=== PATIENT | female | born 1970 | race Caucasian/White ===

== ENCOUNTER 2016-12-16 22:01 | Inpatient (IN) | payer MEDICARE, OTHER ==
--- NOTE | ~2016-12-16 | PN ---
Unit #: [id number] #: [id number] Patient: ALYSHA BONDS [id number] [facility] [address] [place] [address] [id number] MR#: [id number] NAME: ALYSHA BONDS ROOM: P251 Age: 46 Sex: F Admission Date: 12/16/2016 : 1970 Attending Physician: Timoteo Morgan M.D. Admitting Physician: Timoteo Morgan M.D. Primary Care Physician: Generic Doctor Not In System [facility] PROGRESS NOTES DATE OF SERVICE: 12/23/2016 SUBJECTIVE Ms. Bonds is a 46-year-old white female, who was seen today and chart was reviewed, and case was discussed with the staff. She has been anxious, withdrawn, depressed and rather seclusive to herself. Meanwhile, she has been cooperative with treatment recommendations and has been taking the medications and tolerating them with no reported side-effects. MENTAL STATUS EXAMINATION Middle-aged white female, who was casually dressed with fair personal hygiene, appears to be in no acute distress or discomfort. She was awake and alert on interaction with intact orientation. Her mood was anxious with a congruent affect. Her speech was slow and goal directed. She denies any suicidal or homicidal ideations. Her insight and judgment remain slightly impaired. TREATMENT PLAN 1. We will continue her on her current medications and treatment protocol. We will monitor her response to the medications and make further adjustments as needed. 2. We will continue to follow up. Dictated by... Tyra Andrade/deborah TD: 12/24/2016 07:09 JOB #: [id number] [facility] PROGRESS NOTES Page 1 of 1 X Timoteo Morgan MD PROGRESS NOTE
--- NOTE | ~2016-12-16 | PN ---
Unit #: [id number] #: [id number] Patient: ALYSHA BONDS [id number] [facility] [address] [place] [address] [id number] MR#: [id number] NAME: ALYSHA BONDS. ROOM: P251 Age: 46 Sex: F Admission Date: 12/16/2016 : 1970 Attending Physician: Timoteo Morgan M.D. Admitting Physician: Timoteo Morgan M.D. Primary Care Physician: Ruth Doctor Not In System [facility] PROGRESS NOTES DATE 12/26/2016 DISCUSSION Ms. Bonds is a 46-year-old white female who was seen today and chart was reviewed and case was discussed with the staff. She has been anxious, withdrawn and rather seclusive to herself. Meanwhile, she has been cooperative with treatment recommendations and has been taking medications and tolerating them fairly well. MENTAL STATUS EXAMINATION Middle-aged white female who was casually dressed with fair personal hygiene and appears to be in no acute distress or discomfort. She was awake and alert on interaction with intact orientation. Her mood was anxious and depressed with congruent affect. She denies any suicidal or homicidal ideations. Her insight and judgement remains slightly impaired. TREATMENT PLAN 1. Will continue on current medications and treatment protocol. Will monitor her response to the medications and make further adjustments as needed. 2. Will continue to followup. Dictated by... Timoteo Morgan M.D. IAA/jan TD: 12/26/2016 23:00 JOB #: [id number] Unit #: [id number] #: [id number] Patient: ALYSHA BONDS PROGRESS NOTES Page 1 of 1 X Timoteo Morgan MD PROGRESS NOTE
--- NOTE | ~2016-12-16 | PN ---
Unit #: [id number] #: [id number] Patient: ALYSHA BONDS [id number] [facility] [address] [place] [address] [id number] MR#: [id number] NAME: ALYSHA BONDS. ROOM: P251 Age: 46 Sex: F Admission Date: 12/16/2016 : 1970 Attending Physician: Timoteo Morgan M.D. Admitting Physician: Tyra Andrade PROGRESS NOTES DATE OF SERVICE: 12/22/2016 DISCUSSION Ms. Eduardo is a 46-year-old female, seen on 12/22/2016. The patient interviewed, chart reviewed, and obtained information from nursing staff. The patient was throwing up yesterday. Feeling better today. Compliant and cooperative. Vital signs stable; temperature 97.8, heart rate 58, respiratory rate 16, and blood pressure 99/58. The patient was able to complete her ADL in milieu. Mood, sad and dysphoric. Flat affect and guarded. The patient denied any complaints. REVIEW OF SYSTEMS Complete review of systems unremarkable. MENTAL STATUS EXAMINATION General appearance, the patient dressed casually. Attention span and concentration, fair. Oriented in place and person. Mood and affect, sad and dysphoric. Speech, monotone. Thought process, concrete. The patient denied any thoughts of harming self or others or any psychotic symptom. Recent and remote memory, poor. Insight and judgment, poor. DIAGNOSIS Major depressive disorder, recurrent, F33.2. ASSESSMENT AND PLAN Advised to continue with current medication and therapeutic protocol. If needed, consider further adjustment of medication. Dictated by... Tyra Arreaga/deborah TD: 12/22/2016 13:42 JOB #: [id number] Unit #: [id number] #: [id number] Patient: ALYSHA BONDS PROGRESS NOTES Page 1 of 1 X Juan Kuhn MD PROGRESS NOTE
--- NOTE | ~2016-12-16 | PN ---
Unit #: [id number] #: [id number] Patient: ALYSHA BONDS [id number] [facility] [address] [place] [address] [id number] I MR#: [id number] NAME: ALYSHA BONDS. ROOM: P251 Age: 46 Sex: F Admission Date: 12/16/2016 : 1970 Attending Physician: Timoteo Morgan M.D. Admitting Physician: Timoteo Morgan M.D. Primary Care Physician: Ruth Doctor Not In System [facility] PROGRESS NOTES DATE December 30, 2016 DISCUSSION Ms. Bonds is a 46-year-old white female, who was seen today and chart was reviewed and the case was discussed with the staff. She has been anxious, withdrawn, but has not shown any agitation, irritability, and has been cooperative with the treatment recommendations and he has been taking the medications and tolerating them fairly well with no reported side effects. MENTAL STATUS EXAMINATION Middle-aged white female, who was casually dressed with fair personal hygiene and appears to be in no acute distress or discomfort. The patient was awake and alert with intact orientation. Her mood is anxious with a congruent affect. Her speech is slow and goal-directed. She denies any suicidal or homicidal ideations, and also denies any auditory or visual hallucinations. Her insight and judgment remain slightly impaired. TREATMENT PLAN 1. We will continue her on her current medications and treatment protocol, and will monitor her response to the medications, and make further adjustments as needed. 2. We will continue to followup. Dictated by... Tyra Andrade/sourav TD: 12/30/2016 12:41 JOB #: [id number] Unit #: [id number] #: [id number] Patient: ALYSHA BONDS [facility] PROGRESS NOT[facility] Page 1 of 1 X Timoteo Morgan MD PROGRESS NOTE
--- NOTE | ~2016-12-16 | FU ---
[facility] Nutrition Therapy DATE: 12/23/16 Patient: ALYSHA BONDS Physician: AFAIRF Address: [address] [place] [address] [address] B4 Room/Bed: [address], Zip: [place] [address] Admit Date: 12/16/16 Date of : [birth year] Height: 5 5 Weight: 109 49.17081 NUTRITION MONITORING/FOLLOW-UP: Reason: NUTRITION FOLLOW-UP FOR LOW BMI AND CHEWING/SWALLOWING DIFFICULTIES Anthropometrics: HT: 5'5", WT: 110#, BMI: 18.3 (NO NEW WEIGHT) Labs: NO LABS AVAILABLE Meds: FERROUS GLUCONATE, NEURONTIN, CELEXA, MVI, DESYREL Assessment: PATIENT WAS ADMITTED FOR DEPRESSION AND SI. PER MD NOTES, PATIENT HAS BEEN COMPLIANT WITH TREATMENT RECOMMENDATIONS AND TOLERATING MEDICATIONS WELL. NURSING REPORTS FA[facility]OD PO INTAKES. PATIENT DID HAVE C/O NAUSEA AND VOMITING ON 10/23 AND STARTED FEELING BETTER YESTERDAY. THERE ARE NO NEW WEIGHTS SINCE ADMIT. WILL REQUEST A NEW WEIGHT. PATIENT CONTINUES ON A REGULAR DIET WITH LARGE PORTION ENTREES, AND SHE RECEIVES ENSURE TID FOR ADDED NUTRIENT SUPPORT. THERE HAVE BEEN NO C/O FOR CHEWING/SWALLOWING DIFFICULTIES. Dx: INADEQUATE NUTRIENT INTAKE R/T CURRENT CONDITION, DETOX AEB LOW BMI, DECREASED APPETITE, NUTRITIONAL RISK POINT - IMPROVING!! APPETITE HAS IMPROVED, NEEDS NEW WEIGHT OBTAINED Intervention: REGULAR DIET, SUPPLEMENTS, MEDS PER MD, DETOX- RESOLVED, PSYCH Monitoring, Evaluation and Goals: 1. ADEQUATE PO INTAKES >50% OF MEALS 2. PREVENT, CORRECT MICRO/MACRO NUTRIENT DEFICIENCIES 3. PROMOTE A STEADY WEIGHT GAIN TOWARDS A HEALTHY BMI OF 19-25. PREVENT WEIGHT LOSS MONITOR: WEIGHTS, LABS, PO/FLUID INTAKES Recommendations: 1. CONTINUE REGULAR DIET WITH LARGE PORTION ENTREES AND ENSURE TID TOLERATED 2. ENCOURAGE ADEQUATE PO, FLUID, AND SUPPLEMENT INTAKES 3. OBTAIN NEW WEIGHT TO ASSESS PATIENT'S WEIGHT STATUS. CONTINUE TO WEIGH PATIENT REGULARLY (3VERY 3-4 DAYS) RD TO F/U PER PROTOCOL AND PRN R/T PATIENT MILDLY COMPROMISED Status: [facility] Nutrition Therapy DATE: 12/23/16 Patient: ALYSHA BONDS Physician: AFAIRF Address: [address] [place] [address] [address] B4 Room/Bed: [address], Zip: [place] [address] Admit Date: 12/16/16 Date of : [birth year] Height: 5 5 Weight: 109 49.57662 Respectfully, PJ JAMES RD, LD [facility] cc: client file
--- NOTE | ~2016-12-16 | CO ---
Unit #: [id number] #: [id number] Patient: ALYSHA BONDS [id number] [facility] [address] [place] [address] [id number] I MR#: [id number] NAME: ALYSHA BONDS ROOM: P251 Age: 46 Sex: F Admission Date: 12/16/2016 : 1970 Attending Physician: Timoteo Morgan M.D. Primary Care Physician: Generic Doctor Not In System Consultation Date: 12/17/2016 CONSULTATION REPORT SUBJECTIVE Alysha is a 46-year-old, who was admitted with multiple scabbed areas across her body. These areas were described in her admission H and P dated 12/17/2016. Please see H and P dated 12/17/2016. Dictated by... Kelsey Torres P.A.-C. for Tyra Ackerman/deborah TD: 12/21/2016 02:37 JOB #: [id number] CONSULTATION REPORT Page 1 of 1 X Kelsey Torres CONSULTATION REPORT
--- NOTE | ~2016-12-16 | PN ---
Unit #: [id number] #: [id number] Patient: ALYSHA CASTORENA [id number] [facility] [address] [place] [address] [id number] I MR#: [id number] NAME: ALYSHA CASTORENA. ROOM: P251 Age: 46 Sex: F Admission Date: 12/16/2016 : 1970 Attending Physician: Timoteo Morgan M.D. Admitting Physician: Timoteo Morgan M.D. Primary Care Physician: Generic Doctor Not In System [facility] PROGRESS NOTES DATE 12/21/2016 DISCUSSION Alysha Castorena is a 46-year-old female seen in the room 251. The patient was in bed reported feeling sore. Reported feeling sad depressed but denied any suicidal ideation. The patient compliant with medication. The patient's labs showed hemoglobin 11.7. The patient continues to report feeling sad depressed flat affect withdrawn isolative. The patient's vital signs 98.4, 79, 16, 100/67. Complete review of systems unremarkable. MENTAL STATUS EXAMINATION General appearance, the patient dressed casually in hospital attire laying comfortably in bed. Attention span and concentration was poor. Oriented to place and person. Mood and affect was sad, dysphoric. Speech monotone. Sad depressed. Thought process was goal directed. The patient denied any suicidal ideation but reported still feeling sad, depressed feeling of hopelessness, worthlessness, extreme depression. Recent and remote memory poor. Insight and judgement poor. DIAGNOSES Major depressive disorder recurrent severe. ASSESSMENT/PLAN Advise to continue with current medication. The patient is on Neurontin, Celexa 40 mg daily and desyrel for sleep. If needed consider further adjustment of medication. We will continue to follow. Dictated by... Tyra Arreaga/piter TD: 12/24/2016 03:36 JOB #: [id number] Unit #: [id number] #: [id number] Patient: ALYSHA CASTORENA [facility] PROGRESS NOTES Page 1 of 1 X Juan Kuhn MD X PROGRESS NOTE
--- NOTE | ~2016-12-16 | PN ---
Unit #: [id number] #: [id number] Patient: ALYSHA BONDS [id number] [facility] [address] [place] [address] [id number] I MR#: [id number] NAME: ALYSHA BONDS. ROOM: P251 Age: 46 Sex: F Admission Date: 12/16/2016 : 1970 Attending Physician: Timoteo Morgan M.D. Admitting Physician: Timoteo Morgan M.D. Primary Care Physician: Generic Doctor Not In System [facility] PROGRESS NOTES DATE 12/28/2016 DISCUSSION Ms. Bonds is a 46-year-old white female who was seen today and chart was reviewed and case was discussed with the staff. She appears to be starting to do better as she has been able to come out of her room and has been able to interact and socialize. Meanwhile, she has been taking medications and tolerating them fairly well with no reported side effects. MENTAL STATUS EXAMINATION Middle-aged white female who was casually dressed with fair personal hygiene, appears to be in no acute distress or discomfort. She was awake and alert with impaired attention and concentration. Her mood was anxious with congruent affect. Her speech was slow and restricted in content. Her thought processes were disorganized with some looseness of associations. Her insight and judgement remains significantly impaired. TREATMENT PLAN 1. We will continue her on her current medications and treatment protocol. We will monitor her response to the medication and make further adjustments as needed. 2. We will continue to follow up. Dictated by... Tyra Andrade/piter TD: 12/30/2016 00:59 JOB #: [id number] Unit #: [id number] #: [id number] Patient: ALYSHA BONDS [facility] PROGRESS NOTES Page 1 of 1 X Timoteo Morgan MD PROGRESS NOTE
--- NOTE | ~2016-12-16 | PN ---
Unit #: [id number] #: [id number] Patient: ALYSHA BONDS [id number] [facility] [address] [place] [address] [id number] I MR#: [id number] NAME: ALYSHA BONDS. ROOM: P251 Age: 46 Sex: F Admission Date: 12/16/2016 : 1970 Attending Physician: Timoteo Morgan M.D. Admitting Physician: Timoteo Morgan M.D. Primary Care Physician: Ruth Doctor Not In System [facility] PROGRESS NOTES DATE 12/27/2016 DISCUSSION Ms. Bonds is a 46-year-old white female who was seen today and chart was reviewed and case was discussed with the staff. She has been anxious, withdrawn and rather seclusive to herself. Meanwhile, she has been cooperative with treatment recommendations and has been taking medications and tolerating them fairly well with no reported side effects. MENTAL STATUS EXAMINATION Middle-aged white female who was casually dressed with fair personal hygiene and appears to be in no acute distress or discomfort. She was awake and alert on interaction with intact orientation. Her mood was anxious with congruent affect. She denies any suicidal or homicidal ideations. Her insight and judgement remains slightly impaired. TREATMENT PLAN 1. Will continue on current medications and treatment protocol. Will monitor her response to the medications and make further adjustments as needed. 2. Will continue to follow up. Dictated by... Timoteo Morgan M.D. IAA/jan TD: 12/27/2016 20:55 JOB #: [id number] Unit #: [id number] #: [id number] Patient: ALYSHA BONDS [facility] PROGRESS NOT[facility] Page 1 of 1 X Timoteo Morgan MD X PROGRESS NOTE
--- NOTE | ~2016-12-16 | PN ---
Unit #: [id number] #: [id number] Patient: ALYSHA BONDS [id number] [facility] [address] [place] [address] [id number] I MR#: [id number] NAME: ALYSHA BONDS. ROOM: P251 Age: 46 Sex: F Admission Date: 12/16/2016 : 1970 Attending Physician: Timoteo Morgan M.D. Admitting Physician: Timoteo Morgan M.D. Primary Care Physician: Generic Doctor Not In System [facility] PROGRESS NOTES DATE OF SERVICE: 12/24/2016 SUBJECTIVE Ms. Bonds is a 46-year-old white female, who was seen today and chart was reviewed, and case was discussed with the staff. She has been anxious, withdrawn, rather seclusive to herself. Meanwhile, she has been cooperative with treatment recommendations and has been taking the medications and tolerating them fairly well, though has been exhibiting some significant anxiety and rather being seclusive to herself and also has been complaining of being nauseous. MENTAL STATUS EXAMINATION Middle-aged white female, who was casually dressed with fair personal hygiene, appears to be in no acute distress or discomfort. She was awake and alert on interaction with intact orientation. Her mood was anxious with a congruent affect. Her speech was slow and goal directed. She denies any suicidal or homicidal ideation, and also denies any auditory or visual hallucinations. Her insight and judgment remain slightly impaired. TREATMENT PLAN 1. We will continue on current treatment protocol. We will monitor her response to medications and make further adjustments as needed. 2. We will continue to follow up. Dictated by... Tyra Andrade/deborah TD: 12/25/2016 02:30 JOB #: [id number] Unit #: [id number] #: [id number] Patient: ALYSHA BONDS [facility] PROGRESS NOTES Page 1 of 1 X Timoteo Morgan MD PROGRESS NOTE
--- NOTE | ~2016-12-16 | PN ---
Unit #: [id number] #: [id number] Patient: ALYSHA BONDS [id number] [facility] [address] [place] [address] [id number] I MR#: [id number] NAME: ALYSHA BONDS. ROOM: P251 Age: 46 Sex: F Admission Date: 12/16/2016 : 1970 Attending Physician: Timoteo Morgan M.D. Admitting Physician: Timoteo Morgan M.D. Primary Care Physician: Ruth Doctor Not In System [facility] PROGRESS NOTES DATE 12/20/2016 DISCUSSION Ms. Bonds is a 46-year-old white female who was seen today and chart was reviewed and case was discussed with the staff. She remains anxious, withdrawn, depressed and seclusive to herself. Meanwhile, she has been cooperative with treatment recommendations and has been taking medications and tolerating them fairly well with no reported side effects. MENTAL STATUS EXAMINATION Middle-aged white female who was casually dressed with fair personal hygiene and appears to be in no acute distress or discomfort. She was awake and alert on interaction with intact orientation. Her mood was anxious and depressed with congruent affect. She denies any suicidal or homicidal ideations and also denies any auditory or visual hallucinations. Her insight and judgement remains slightly impaired. TREATMENT PLAN 1. Will continue on current medications and treatment protocol. Will monitor her response and make further adjustments as needed. 2. Will continue to follow up. Dictated by... Tyra Andrade/jan TD: 12/23/2016 08:34 JOB #: [id number] Unit #: [id number] #: [id number] Patient: ALYSHA BONDS [facility] PROGRESS NOTES Page 1 of 1 X Timoteo Morgan MD X PROGRESS NOTE
--- NOTE | ~2016-12-16 | PN ---
Unit #: [id number] #: [id number] Patient: ALYSHA BONDS [id number] [facility] [address] [place] [address] [id number] MR#: [id number] NAME: ALYSHA BONDS. ROOM: P251 Age: 46 Sex: F Admission Date: 12/16/2016 : 1970 Attending Physician: Timoteo Morgan M.D. Admitting Physician: Timoteo Morgan M.D. Primary Care Physician: Ruth Doctor Not In System [facility] PROGRESS NOTES DATE OF SERVICE 12/18/2016 DISCUSSION Ms. Bonds is a 46-year-old white female who was seen today. Chart was reviewed and case was discussed with the staff. She reports the patient has been anxious, withdrawn, (1) __ fragile, with multiple physical symptoms and has been decompensating and has not been able to carry on any meaningful conversation and at times appear to be "just out of it." Meanwhile, she has been compliant with the treatment recommendations and has been taking the medications and tolerating them fairly well with no reported side effects. MENTAL STATUS EXAMINATION Middle-aged white female who is casually dressed with fair personal hygiene, appears to be in no acute distress or discomfort. She was awake and alert with intact orientation. Her mood is anxious with congruent affect. She reports having suicidal ideation but denies any homicidal ideations. Her insight and judgment remain significantly impaired. TREATMENT PLAN 1. We will continue her on her current treatment protocol. We will monitor her response to the medications and make further adjustments as needed. 2. We will continue to follow up. Dictated by... Tyra Andrade/niralig TD: 12/20/2016 07:52 JOB #: [id number] Unit #: [id number] #: [id number] Patient: ALYSHA BONDS [facility] PROGRESS NOT[facility] Page 1 of 1 X Timoteo Morgan MD PROGRESS NOTE
--- NOTE | ~2016-12-16 | PN ---
Unit #: [id number] #: [id number] Patient: ALYSHA BONDS [id number] [facility] [address] [place] [address] [id number] I MR#: [id number] NAME: ALYSHA BONDS. ROOM: P251 Age: 46 Sex: F Admission Date: 12/16/2016 : 1970 Attending Physician: Timoteo Morgan M.D. Admitting Physician: Timoteo Morgan M.D. Primary Care Physician: Ruth Doctor Not In System [facility] PROGRESS NOTES DATE 12/19/2016 DISCUSSION Ms. Bonds is a 46-year-old white female who was seen today and chart was reviewed and case was discussed with the staff. She has been anxious, withdrawn and rather seclusive to herself has been having some medical complications as such was sent out of the emergency room yesterday and was diagnosed with pneumonia and was started on antibiotic and transferred back to ____. Meanwhile, she continues to express persistent depression, anxiety and feelings of hopelessness has been very seclusive to herself. MENTAL STATUS EXAMINATION Middle-aged white female who was casually dressed with fair personal hygiene, appears to be in no acute distress or discomfort. She was awake and alert with impaired attention and concentration. Her mood was anxious with congruent affect. She reports having suicidal ideation but denies any homicidal ideations. Her insight and judgement remains significantly impaired. TREATMENT PLAN 1. We will continue her on her current medications and treatment protocol. We will monitor her response and make further adjustments as needed. 2. We will continue to follow up. Dictated by... Tyra Andrade/piter TD: 12/22/2016 21:11 JOB #: [id number] Unit #: [id number] #: [id number] Patient: ALYSHA BONDS [facility] PROGRESS NOT[facility] Page 1 of 1 X Timoteo Morgan MD PROGRESS NOTE
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
--- NOTE | ~2016-12-16 | DS ---
Unit #: [id number] #: [id number] Patient: ALYSHA BONDS [id number] [facility] [address] [place] [address] [id number] MR#: [id number] NAME: ALYSHA BONDS. ROOM: P251 Age: 46 Sex: F Admission Date: 12/16/2016 : 1970 Discharge Date: 12/31/2016 Attending Physician: Timoteo Morgan M.D. Primary Care Physician: Generic Doctor Not In System DISCHARGE SUMMARY IDENTIFYING DATA Ms. Bonds is a 46-year-old white female, who is known to us from previous encounter and was transferred to us from [facility] in [place], [place]. DISCHARGE DIAGNOSES Psychiatric: Major depressive disorder, recurrent, moderate, without psychotic features; opioid dependence, moderate; methamphetamine dependence, moderate; cocaine abuse, moderate. Medical: COPD, gastric bypass surgery, history of gastric ulcers. Stressors: Moderate psychosocial stressors. HISTORY OF PRESENT ILLNESS Please see initial psychiatric evaluation for details. PAST PSYCHIATRIC HISTORY Please see initial psychiatric evaluation for details. PAST MEDICAL HISTORY Please see initial psychiatric evaluation for details. HOSPITAL COURSE The patient [facility] and was oriented to the hospital environment. Routine p.r.n. medications were initiated, and she was started back on her home medications. Detox protocol was initiated as well and Celexa was increased to 40 mg a day. She was seen to be exhibiting significant anxiety and depression and was seen to be not showing a therapeutic response for the first several days, she was just seen to be seclusive to herself. However, she was able to show a slower therapeutic response with improvement in depression and anxiety and was awake and alert, interacting, socializing, and taking care of her personal hygiene and performing activities of daily living and was wanting to go home and was willing to continue treatment on an outpatient basis. DISCHARGE MEDICATION Celexa 40 mg a day for depression. DISCHARGE CONDITION Stable. PROGNOSIS Fair. Unit #: [id number] #: [id number] Patient: ALYSHA BONDS Dictated by... Tyra Andrade/deborah TD: 12/31/2016 08:04 JOB #: [id number] DISCHARGE SUMMARY Page 1 of 1 X Timoteo Morgan MD DISCHARGE SUMMARY
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
--- NOTE | ~2016-12-16 | PN ---
Unit #: [id number] #: [id number] Patient: ALYSHA BONDS [id number] [facility] [address] [place] [address] [id number] I MR#: [id number] NAME: ALYSHA BONDS. ROOM: P251 Age: 46 Sex: F Admission Date: 12/16/2016 : 1970 Attending Physician: Timoteo Morgan M.D. Admitting Physician: Timoteo Morgan M.D. Primary Care Physician: Ruth Doctor Not In System [facility] PROGRESS NOTES DATE OF SERVICE 12/25/2016 DISCUSSION Ms. Bonds is a 46-year-old white female who was seen today. Chart was reviewed and case was discussed with the staff. She has been anxious, withdrawn, and rather seclusive to herself. Meanwhile, she has been cooperative with the treatment recommendations and has been taking the medications and tolerating them fairly well with no reported side effects. MENTAL STATUS EXAMINATION Middle-aged white female who is casually dressed with fair personal hygiene, appears to be in slight distress or discomfort. She was awake and alert on interaction with impaired attention and concentration. Her mood is anxious and depressed with congruent affect. She reports having suicidal ideation but denies any homicidal ideations. Her insight and judgment remain slightly impaired. TREATMENT PLAN 1. We will continue her on her current medications and treatment protocol. We will monitor her response to the medications and make further adjustments as needed. 2. We will continue to follow up. Dictated by... Tyra Andrade/niralig TD: 12/26/2016 07:06 JOB #: [id number] Unit #: [id number] #: [id number] Patient: ALYSHA BONDS [facility] PROGRESS NOTES Page 1 of 1 X Timoteo Morgan MD PROGRESS NOTE
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
[~2016-12-16 22:01] MED LIST: ABILIFY10 MG PO; ALBUTEROL17 GM INH; AMBIEN CR PO; BACLOFEN10 MG PO; BUSPIRONE HCL10 MG PO; CARAFATE1 GM PO; CITALOPRAM HBR40 MG PO; EFFEXOR-XR150 MG PO; FERROUS GLUCON324 MG PO; FIORICET1 TAB PO; LASIX20 MG PO; MAALOX ADVANCE770 ML PO; MILK OF MAGNESIA PO; MINIPRESS1 MG PO; NICOTINE TRANSD14 MG EXT; PEPCID AC20 M2 PO; PHENERGAN25 M1 PO; PROTONIX PO; SAPHRIS2.5 MG PO; TRAZODONE HCL100 MG PO; TYLENOL325 M1 PO; ZOFRAN ODT4 MG PO
[2016-12-20 12:55] LABS: BASOPHIL% 0.8 % (0-2.5); DIFF IND NO; EOSINOPHIL% 1.1 % (0.0-7.0); HEMATOCRIT 37.3 % (35.0-45.0); HEMOGLOBIN 11.7 gm/dL (12.0-16.0); LYMPHOCYTE# 0.9 X10e3 (1.0-3.5); LYMPHOCYTE% 20.1 % (17.0-45.0); MEAN CORPUSCULAR HEMOGLOBIN 27.2 PG (28-34); MEAN CORPUSCULAR HGB CONC 31.2 g/dL (30-36); MEAN PLATELET VOLUME 9.3 FL (6.5-11.5); MONOCYTE# 0.3 X10e3 (0-1.0); MONOCYTE% 6.4 % (3.0-12.0); NEUTROPHIL# 3.1 X10e3 (1.5-7.1); NEUTROPHIL% 71.6 % (40-75); PLATELET COUNT 226 X10e3 (140-420); RED BLOOD COUNT 4.29 X10e (3.90-5.30); RED CELL DISTRIBUTION WIDTH 18.5 % (11.0-15.5); WHITE BLOOD COUNT 4.4 X10e3 (4.0-10.5)
== END 2016-12-31 16:20 | disposition home or self-care (01) | DRG 885 ==
LOC: P2L 22:01
PROVIDERS: Psychiatry & Neurology Psychiatry
DX: F33.1 Major depressive disorder, recurrent, moderate (principal); R45.851 Suicidal ideations; F11.20 Opioid dependence, uncomplicated; F15.20 Other stimulant dependence, uncomplicated; F14.10 Cocaine abuse, uncomplicated; J44.9 Chronic obstructive pulmonary disease, unspecified; Z98.84 Bariatric surgery status; F17.210 Nicotine dependence, cigarettes, uncomplicated; Z88.5 Allergy status to narcotic agent; Z88.6 Allergy status to analgesic agent; Z88.1 Allergy status to other antibiotic agents; Z88.0 Allergy status to penicillin
CPT/HCPCS: 82947; 85025; J2550

== ENCOUNTER 2017-01-20 19:01 | Inpatient (IN) | payer MEDICARE, OTHER ==
--- NOTE | ~2017-01-20 | PN ---
Unit #: [id number] #: [id number] Patient: ALYSHA CASTORENA [id number] [facility] [address] [place] [address] [id number] MR#: [id number] NAME: ALYSHA CASTORENA ROOM: P176 Age: 46 Sex: F Admission Date: 01/21/2017 : 1970 Attending Physician: Timoteo Morgan M.D. Admitting Physician: Timoteo Morgan M.D. Primary Care Physician: Primary Care Physician Esha WILSON PROGRESS NOTES DATE OF SERVICE 01/26/2017 DISCUSSION Ms. Castorena is a 46-year-old white female who was seen today. Chart was reviewed and case was discussed with the staff. She has been anxious, withdrawn, and rather seclusive to herself. Meanwhile, she has been cooperative with the treatment recommendations and has been taking the medications and tolerating them fairly well with no reported side effects. MENTAL STATUS EXAMINATION Middle-aged white female who is casually dressed with fair personal hygiene, appears to be in no acute distress or discomfort. The patient was awake and alert with intact orientation. Her mood is anxious with congruent affect. She denies any suicidal or homicidal ideations. Her insight and judgment remain slightly impaired. TREATMENT PLAN 1. We will continue her on her current treatment protocol. We will monitor her response to the medications and make further adjustments as needed. 2. We will continue to follow up. Dictated by... Timoteo Morgan M.D. IAA/bzg TD: 01/27/2017 05:18 JOB #: [id number] [facility] PROGRESS NOTES Page 1 of 1 X Timoteo Morgan MD PROGRESS NOTE
--- NOTE | ~2017-01-20 | PN ---
Unit #: [id number] #: [id number] Patient: ALYSHA CASTORENA [id number] [facility] [address] [place] [address] [id number] MR#: [id number] NAME: ALYSHA CASTORENA ROOM: P176 Age: 46 Sex: F Admission Date: 01/21/2017 : 1970 Attending Physician: Timoteo Morgan M.D. Admitting Physician: Timoteo Morgan M.D. Primary Care Physician: Primary Care Physician Esha BOYD NOTES DATE OF SERVICE 01/29/2017 DISCUSSION Ms. Castorena is a 46-year-old white female who was seen today. Chart was reviewed and case was discussed with the staff. She has been doing fairly well and has been calm and cooperative with treatment recommendations. She is scheduled to go to a long-term rehab level of care tomorrow. MENTAL STATUS EXAMINATION Middle-aged white female who is casually dressed with fair personal hygiene, appears to be in no acute distress or discomfort. She was awake and alert on interaction with intact orientation. Her mood is anxious with congruent affect. She denies any suicidal or homicidal ideations and also denies any auditory or visual hallucinations. Her insight and judgment remain slightly impaired. TREATMENT PLAN 1. We will continue her on her current medications and treatment protocol. We will monitor her response to the medications and make further adjustments as needed. 2. We will continue to follow up. Dictated by... Timoteo Morgan M.D. IAA/bzg TD: 01/30/2017 09:09 JOB #: [id number] [facility] PROGRESS NOTES Page 1 of 1 X Timoteo Morgan MD X PROGRESS NOTE
--- NOTE | ~2017-01-20 | DS ---
Unit #: [id number] #: [id number] Patient: ALYSHA BONDS [id number] [facility] [address] [place] [address] [id number] MR#: [id number] NAME: ALYSHA BONDS. ROOM: P176 Age: 46 Sex: F Admission Date: 01/21/2017 : 1970 Discharge Date: 01/30/2017 Attending Physician: Timoteo Morgan M.D. Primary Care Physician: Primary Care Physician No DISCHARGE SUMMARY IDENTIFYING DATA Ms. Bonds is a 46-year-old white female, who is known to us from previous multiple encounters and was self-referred to the hospital. DISCHARGE DIAGNOSES Psychiatric: Major depressive disorder, recurrent, moderate without psychotic features; cocaine dependence, moderate; opioid abuse, moderate; methamphetamine abuse, moderate. Medical: Chronic obstructive pulmonary disease. Stressors: Moderate psychosocial stressors. HISTORY OF PRESENT ILLNESS Please see initial psychiatric evaluation for details. PAST PSYCHIATRIC HISTORY Please see initial psychiatric evaluation for details. PAST MEDICAL HISTORY Please see initial psychiatric evaluation for details. HOSPITAL COURSE The patient was [facility] and was oriented to the hospital environment. Routine p.r.n. medications were initiated, and she was started back on her home medications and was seemed to be anxious, withdrawn, depressed, and initially Celexa was maintained and increased to 40 mg a day but she was unable to show a therapeutic response. Requested medication to be adjusted and Celexa was then switched to Effexor XR 75 mg at bedtime. She was taking the medications regularly and was tolerating them fairly well and was seemed to be polite and pleasant; however, she was requesting a long-term rehab level of care due to multiple field acute treatment, and social insurance administrator were able to make a referral to [facility] in [place] and she was able to get accepted with a direct transfer from this facility to [place]. Following which, it was decided that discharge planning will be completed. She will be transferred to that facility. DISCHARGE MEDICATIONS Effexor XR 75 mg a day for depression. DISCHARGE CONDITION Stable. PROGNOSIS Fair. Unit #: [id number] #: [id number] Patient: ALYSHA BONDS Dictated by... Timoteo Morgan M.D. IAA/modl TD: 01/30/2017 07:00 JOB #: [id number] DISCHARGE SUMMARY Page 1 of 1 X Timoteo Morgan MD DISCHARGE SUMMARY
--- NOTE | ~2017-01-20 | PN ---
Unit #: [id number] #: [id number] Patient: ALYSHA CASTORENA [id number] [facility] [address] [place] [address] [id number] MR#: [id number] NAME: AYLSHA CASTORENA. ROOM: P176 Age: 46 Sex: F Admission Date: 01/21/2017 : 1970 Attending Physician: Timoteo Morgan M.D. Admitting Physician: Timoteo Morgan M.D. Primary Care Physician: Primary Care Physician Esha BOYD NOTES DATE 01/28/2017 DISCUSSION Ms. Castorena is a 46-year-old white female who was seen today and chart was reviewed and case was discussed with the staff. She has been anxious, withdrawn and rather seclusive to herself. Meanwhile, she has been cooperative with treatment recommendations has been taking the medications and tolerating them fairly well with no reported side effects. MENTAL STATUS EXAMINATION Middle-aged white female who was casually dressed with fair personal hygiene, appears to be in no acute distress or discomfort. She was awake and alert on interaction with intact orientation. Her mood was anxious with congruent affect. She denies any suicidal or homicidal ideations. Her insight and judgement remains slightly impaired. TREATMENT PLAN 1. We will continue her on her current medications and treatment protocol. We will monitor her response and make further adjustments as needed. 2. We will continue to follow up. Dictated by... Tyra Andrade/piter TD: 01/28/2017 22:04 JOB #: [id number] Unit #: [id number] #: [id number] Patient: ALYSHA CASTORENA [facility] PROGRESS NOTES Page 1 of 1 X Timoteo Morgan MD PROGRESS NOTE
--- NOTE | ~2017-01-20 | PN ---
Unit #: [id number] #: [id number] Patient: ALYSHA CASTORENA [id number] [facility] [address] [place] [address] [id number] I MR#: [id number] NAME: ALYSHA CASTORENA. ROOM: P176 Age: 46 Sex: F Admission Date: 01/21/2017 : 1970 Attending Physician: Timoteo Morgan M.D. Admitting Physician: Timoteo Morgan M.D. Primary Care Physician: Primary Care Physician Esha BOYD NOTES DATE 01/25/2017 DISCUSSION Ms. Castorena is a 46-year-old white female who was seen today and chart was reviewed. Her case was discussed with the staff. She has been anxious, withdrawn, and rather seclusive to herself. Meanwhile, she has been cooperative with treatment recommendations and has been taking medications and tolerating them fairly well with no reported side effects. MENTAL STATUS EXAMINATION Middle-aged white female who is casually dressed with fair personal hygiene, appears to be in no acute distress or discomfort. She was awake and alert on interaction with intact orientation. Her mood was anxious with a congruent affect. She denies any suicidal or homicidal ideations and also denies any auditory or visual hallucinations. Her insight and judgment remain slightly impaired. TREATMENT PLAN 1. We will continue her on her current medications and treatment protocol. We will monitor her response to the medications and make further adjustments as needed. 2. We will continue to follow up. Dictated by... Tyra Andrade/debbie TD: 01/26/2017 13:36 JOB #: [id number] Unit #: [id number] #: [id number] Patient: ALYSHA CASTORENA PROGRESS NOTES Page 1 of 1 X Timoteo Morgan MD PROGRESS NOTE
--- NOTE | ~2017-01-20 | PN ---
Unit #: [id number] #: [id number] Patient: ALYSHA CASTORENA [id number] [facility] [address] [place] [address] [id number] MR#: [id number] NAME: ALYSHA CASTORENA. ROOM: P176 Age: 46 Sex: F Admission Date: 01/21/2017 : 1970 Attending Physician: Timoteo Morgan M.D. Admitting Physician: Timoteo Morgan M.D. Primary Care Physician: Primary Care Physician Esha BOYD NOTES DATE OF SERVICE 01/22/2017 DISCUSSION Ms. Castorena is a 46-year-old white female who was seen today. Chart was reviewed and case was discussed with staff. She has been anxious, withdrawn, and rather seclusive to himself. Meanwhile, she has been cooperative with the treatment recommendations and has been taking the medications and tolerating them fairly well with no reported side effects. MENTAL STATUS EXAMINATION Middle-aged white female who is casually dressed with fair personal hygiene, appears to be in no acute distress or discomfort. The patient was awake and alert with impaired attention and concentration. Her mood is anxious and depressed with congruent affect. She reports having suicidal ideation but denies any homicidal ideations and also denies any auditory or visual hallucinations. Her insight and judgment remain slightly impaired. TREATMENT PLAN 1. We will continue her on her current medications and treatment protocol. We will monitor her response to the medications and make further adjustments as needed. 2. We will continue to follow up. Dictated by... Tyra Andrade/herbert TD: 01/22/2017 08:38 JOB #: [id number] Unit #: [id number] #: [id number] Patient: ALYSHA CASTORENA PEAMINERVA PROGRESS NOTES Page 1 of 1 X Timoteo Morgan MD PROGRESS NOTE
--- NOTE | ~2017-01-20 | PN ---
Unit #: [id number] #: [id number] Patient: ALYSHA CASTORENA [id number] [facility] [address] [place] [address] [id number] I MR#: [id number] NAME: ALYSHA CASTORENA. ROOM: P176 Age: 46 Sex: F Admission Date: 01/21/2017 : 1970 Attending Physician: Timoteo Morgan M.D. Admitting Physician: Timoteo Morgan M.D. Primary Care Physician: Primary Care Physician Esha BOYD NOTES DATE OF SERVICE 01/24/2017 DISCUSSION Ms. Castorena is a 46-year-old white female who was seen today. Chart was reviewed and case was discussed with the staff. She remains anxious, withdrawn, depressed, and rather seclusive to herself and also has been complaining of nausea and vomiting. Meanwhile, she also informed me that she got accepted at [facility] residential facility in [place] and is awaiting for bed to become available. MENTAL STATUS EXAMINATION Middle-aged white female who is casually dressed with fair personal hygiene, appears to be in no acute distress or discomfort. She was awake and alert with impaired attention and concentration. His mood is anxious with congruent affect. She denies any suicidal or homicidal ideations and also denies any auditory or visual hallucinations. Her insight and judgment remain slightly impaired. TREATMENT PLAN 1. We will continue her on her current medications and treatment protocol. We will monitor her response to the medications and make further adjustments as needed. 2. We will continue to follow up. Dictated by... Tyra Andrade/herbert TD: 01/24/2017 12:28 JOB #: [id number] Unit #: [id number] #: [id number] Patient: ALYSHA CASTORENA PEAMINERVA PROGRESS NOTES Page 1 of 1 X Timoteo Morgan MD PROGRESS NOTE
--- NOTE | ~2017-01-20 | PN ---
Unit #: [id number] #: [id number] Patient: ALYSHA CASTORENA [id number] [facility] [address] [place] [address] [id number] I MR#: [id number] NAME: ALYSHA CASTORENA. ROOM: P176 Age: 46 Sex: F Admission Date: 01/21/2017 : 1970 Attending Physician: Timoteo Morgan M.D. Admitting Physician: Timoteo Morgan M.D. Primary Care Physician: Primary Care Physician Esha BOYD NOTES DATE OF SERVICE 01/23/2017 DISCUSSION Ms. Castorena is a 46-year-old white female who was seen today. Chart was reviewed and case was discussed with the staff. She has been anxious, withdrawn, and rather seclusive to herself. Meanwhile, she has been cooperative with the treatment recommendations and has been complaining of persistent depressive symptoms with feelings of hopelessness and does not feel that her medication has been effectively controlling her depressive symptoms. Review of the medical records indicate that she is on Celexa which is currently the maximum dose of 40 mg a day. She has been taking it regularly. She has not been able to show a therapeutic response. MENTAL STATUS EXAMINATION Middle-aged white female who is casually dressed with fair personal hygiene, appears to be in no acute distress or discomfort. She was awake and alert with impaired attention and concentration. Her mood is anxious and depressed with congruent affect. Speech is slow and restricted in content. She reports having suicidal ideation but denies any intent or plan. Also, denies any auditory or visual hallucinations. Her insight and judgment remain slightly impaired. TREATMENT PLAN 1. We will continue her on her current treatment protocol as well as level of precaution. We will switch her Celexa to Effexor XR 75 mg at bedtime. We will monitor her response and make further adjustments as needed. 2. We will continue to follow up. Dictated by... Tyra Andrade/herbert TD: 01/23/2017 07:29 JOB #: [id number] Unit #: [id number] #: [id number] Patient: ALYSHA CASTORENA PROGRESS NOTES Page 1 of 1 X Timoteo Morgan MD
--- NOTE | ~2017-01-20 | FU ---
[facility] Nutrition Therapy DATE: 01/27/17 Patient: ALYSHA BONDS Physician: JUAN AF Address: [address] Room/Bed: [address], Zip: [place] [address] Admit Date: 01/21/17 Date of : [birth year] Height: 5 5 Weight: 103 47.852452 NUTRITION MONITORING/FOLLOW-UP: Reason: NUTRITION FOLLOW-UP FOR LOW BMI, 2 NUTRITION RISK POINTS PATIENT ADMITTED FOR SI AND DEPRESSION Anthropometrics: HT: 65", WT: 104# (NO NEW WEIGHT) Labs: NO NEW LABS Meds: EFFEXOR-XR, DESYREL Assessment: PATIENT IS ON A REGULAR DIET WITH NO CAFFEINE, LARGE PORTION ENTREES, AND ENSURE TID. NURSING REPORTS FAIR-GOOD PO INTAKES. THERE ARE NO SKIN OR GI ISSUES NOTED ATT. PATIENT WAS ACCEPTED TO A RESIDENTAL FACILITY AND IS WAITING FOR A BED. THERE ARE NO C/O CHEWING OR SWALLOWING DIFFICULTIES AND SHE IS TOLERATING A REGULAR DIET. THERE ARE NO NEW LABS AND NO NEW WEIGHTS. CURRENT PSYCH MEDS MAY CAUSE WEIGHT AND APPETITE FLUCTUATIONS. Dx: UNDERWEIGHT R/T DECREASED APPETITE/ORAL INTAKE AEB BMI 17, 2 MALNUTRITION RISK SCORE - IMPROVING: PATIENT HAS FAIR-GOOD PO INTAKES, NO C/O CHEWING/SWALLOWING DIFFICULTIES Intervention: LARGE PORTION ENTREES AND/OR ENSURE TID Monitoring, Evaluation and Goals: 1. PO INTAKES >50% OF MEALS 2. GRADUAL WEIGHT GAIN TOWARDS A HEALTHY BMI Recommendations: 1. CONTINUE REGULAR DIET WITH NO CAFFEINE, LARGE PORTION ENTREES, AND ENSURE TID TOLERATED. 2. CONTINUE TO ENCOURAGE ADEQUATE PO, FLUID, AND SUPPLEMENT INTAKES 3. OBTAIN NEW WEIGHT. CONTINUE TO WEIGH PATIENT ROUTINELY (Q 3 DAYS) Status: MILDLY COMPROMISED Respectfully, [facility] Nutrition Therapy DATE: 01/27/17 Patient: ALYSHA BONDS Physician: ARON [facility] [address] Room/Bed: [address], Zip: [place] [address] Admit Date: 01/21/17 Date of : [birth year] Height: 5 5 Weight: [phone], LD [facility] cc: client file
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
--- NOTE | ~2017-01-20 | HP ---
Unit #: [id number] #: [id number] Patient: ALYSHA BONDS [id number] [place] [address] [id number] I MR#: [id number] NAME: ALYSHA BONDS. ROOM: P176 Age: 46 Sex: F Admission Date: 01/21/2017 : 1970 Attending Physician: Timoteo Morgan M.D. Admitting Physician: Timoteo Morgan M.D. Primary Care Physician: Primary Care Physician No HISTORY AND PHYSICAL HISTORY OF PRESENT ILLNESS Alysha is a 46 year old admitted to [facility] with depression and verbalizing wanting to hurt herself. She has had numerous admissions to this facility. PAST MEDICAL HISTORY 1. History of PUD. 2. COPD. 3. Left wrist drop. PAST SURGICAL HISTORY Gastric bypass with 2 revisions. ALLERGIES Morphine, aspirin, ibuprofen, erythromycin, penicillin. SOCIAL HISTORY Smokes 1 pack per day. Denies alcohol and illicit drug use. FAMILY HISTORY Medically noncontributory. REVIEW OF SYSTEMS CONSTITUTIONAL: No fever or chills. HEENT: Denies any sore throat, ear pain or runny nose. CARDIOVASCULAR: Denies chest pain, irregular heart rhythm or palpitations. CHEST: Denies shortness of breath or cough. No hemoptysis. GASTROINTESTINAL: Denies nausea, vomiting, diarrhea or chronic constipation. ENDOCRINE: Denies history of increased thirst or urination. No recent significant weight loss or gain. GENITOURINARY: Denies dysuria, frequency, or hematuria. SKIN: Denies any rashes. HEMATOLOGIC: Denies history of increased bleeding or bruising. MUSCULOSKELETAL: Denies any hot, swollen joints. No generalized muscle pain. NEUROLOGIC: Denies problems with vision or speech. No frequent, severe headaches. No numbness, tingling or weakness in any extremities. Denies loss of bladder or bowel control. CURRENT MEDICATIONS 1. Cytotec 200 mcg q.i.d. 2. Protonix 40 mg b.i.d. 3. Celexa 40 mg daily. Unit #: [id number] #: [id number] Patient: ALYSHA BONDS 4. Nicotine patch 21 mg daily. 5. Carafate 1 gram q. 6 hours. 6. Proventil inhaler p.r.n. 7. Desyrel p.r.n. 8. Milk of Magnesia p.r.n. 9. Maalox p.r.n. 10. Tylenol p.r.n. PHYSICAL EXAMINATION GENERAL: Alert, well-nourished, in no apparent distress. VITAL SIGNS: Blood pressure 120/70, heart rate 80, respirations 16, temperature 98.6. WEIGHT: 104. HEIGHT: 5 feet 5 inches. SKIN: Warm and dry without rash or lesion. HEENT: Normocephalic. TMs not viewed. Oral and nasal passages clear. Conjunctivae clear. PERRLA. EOMs intact. NECK: Supple without lymphadenopathy or thyromegaly. HEART: Regular rate and rhythm without murmur. LUNGS: Clear. ABDOMEN: Soft, nontender. : Not done. EXTREMITIES: No evidence of cyanosis, clubbing or edema. Moves all without focal deficit. NEUROLOGICAL: Grossly within normal limits. Cranial Nerves: II: Visual malik are intact. III, IV AND : Extraocular movements are intact. Pupils are equal, round and reactive to light. V: Facial sensation is grossly normal. VII: Facial movements and expression are normal. VIII: Auditory acuity grossly intact. IX, X: Uvula is midline. Phonation is normal. XI: Patient shrugs shoulders and turns head normally. XII: Tongue protrudes in the midline. Sensory and Motor Function: Sensory and motor sensation is grossly normal. Motor: moves all extremities well. Coordination: Gait is normal. Deep Tendon Reflexes: Intact. IMPRESSION Psychiatric admission. RECOMMENDATIONS PSYCHIATRIC: Per psychiatrist. MEDICAL: See no contraindications to participate in facility's activities. MEDICAL PROGNOSIS Good. MEDICAL CONDITION Stable. Dictated by... Kelsey Torres P.A.-C. for Tyra Ackerman/jan Unit #: [id number] #: [id number] Patient: ALYSHA BONDS TD: 01/21/2017 18:30 JOB #: [id number] HISTORY AND PHYSICAL Page 1 of 1 X Kelsey Torres HISTORY AND PHYSICAL
--- NOTE | ~2017-01-20 | PN ---
Unit #: [id number] #: [id number] Patient: ALYSHA CASTORENA [id number] [facility] [address] [place] [address] [id number] MR#: [id number] NAME: ALYSHA CASTORENA ROOM: P176 Age: 46 Sex: F Admission Date: 01/21/2017 : 1970 Attending Physician: Timoteo Morgan M.D. Admitting Physician: Timoteo Morgan M.D. Primary Care Physician: Primary Care Physician Esha BOYD NOTES DATE OF SERVICE: 01/27/2017 SUBJECTIVE Ms. Castorena is a 46-year-old white female, who was seen today and chart was reviewed, and case was discussed with the staff. She has been anxious, withdrawn, though has not shown any agitation, irritability, or behavior problems and has been cooperative with treatment recommendations and has been taking medications and tolerating them fairly well with no reported side effects. MENTAL STATUS EXAMINATION Middle-aged white female, who was casually dressed with fair personal hygiene, appears to be in no acute distress or discomfort. She was awake and alert with impaired attention and concentration. Her mood was anxious with a congruent affect. She denies any suicidal or homicidal ideations and also denies any auditory or visual hallucinations. Her insight and judgment remain slightly impaired. TREATMENT PLAN 1. We will continue on her medications and treatment protocol. We will monitor her response to medications and make further adjustments as needed. 2. We will continue to follow up. Dictated by... Tyra Andrade/deborah TD: 01/27/2017 08:03 JOB #: [id number] [facility] PROGRESS NOTES Page 1 of 1 X Timoteo Morgan MD PROGRESS NOTE
== END 2017-01-30 10:33 | DRG 885 ==
LOC: P1E 01-21 00:33
PROC: HZ2ZZZZ Detoxification Services for Substance Abuse Treatment (ICD-10-PCS; principal; 2017-01-21)
DX: F33.1 Major depressive disorder, recurrent, moderate (principal); F11.20 Opioid dependence, uncomplicated; R45.851 Suicidal ideations; F14.20 Cocaine dependence, uncomplicated; F15.20 Other stimulant dependence, uncomplicated; J44.9 Chronic obstructive pulmonary disease, unspecified; Z98.84 Bariatric surgery status; Z88.5 Allergy status to narcotic agent; Z88.0 Allergy status to penicillin; Z88.6 Allergy status to analgesic agent; Z88.1 Allergy status to other antibiotic agents; F17.210 Nicotine dependence, cigarettes, uncomplicated